=== PATIENT | female | born 1970 | race Caucasian/White ===

== ENCOUNTER 2018-04-10 13:15 | Emergency (ER) | payer MEDICAID ==
[~2018-04-10] VITALS: Ht 162.6 cm; Wt 77.3 kg
[2018-04-10 13:21] VITALS: BP 11/79
[2018-04-10] MEDS ORDERED: TETanus/Pertussis (Acell)/Diphther VAC/PF (Tdap-Adult) 0.5ml syringe IM ONE (13:45)
[2018-04-10] MEDS ORDERED: LIDOcaine 1.5% w/epinephrine 1:200,000 5ml ampul IJ ONE (13:45)
[2018-04-10] MEDS ORDERED: amox tr/potassium clavulanate 875/125mg TAB PO ONE (15:00)
[2018-04-10] MEDS ORDERED: AMOX-422 PO (15:04)
[2018-04-10] MEDS ORDERED: HYDR-565 PO (15:04)
== END 2018-04-10 15:31 | disposition home or self-care (01) ==
LOC: ER 13:17
DX: S91.312A Laceration without foreign body, left foot, initial encounter (principal); S91.352A Open bite, left foot, initial encounter; Z79.899 Other long term (current) drug therapy; W54.0XXA Bitten by dog, initial encounter; Y93.89 Activity, other specified; Y92.89 Other specified places as the place of occurrence of the external cause; Y99.8 Other external cause status
CPT/HCPCS: 12002; 73630; 90471; 90715; 99284; A6222; A6449; J3490